=== PATIENT | female | born 1960 | race Caucasian/White ===

== ENCOUNTER 2021-04-22 06:02 | Observation (INO) | payer BC ==
[2021-04-20 12:50] LABS: BASOPHILS % 0.5 % (0.0-1.0); EOSINOPHILS # (AUTO) 0.2 (0.0-0.4); EOSINOPHILS % 2.9 % (0.0-6.0); HEMATOCRIT 44.5 % (34.2-44.1); HEMOGLOBIN 14.1 g/dL (12.0-16.0); LYMPHOCYTES # (AUTO) 2.3 (1.0-3.2); MEAN CORPUSCULAR HEMOGLOBIN 28.3 pg (28-32); MEAN CORPUSCULAR HGB CONC 31.7 g/dL (31-35); MEAN CORPUSCULAR VOLUME 89.4 fL (81-99); MONOCYTES # (AUTO) 0.4 (0.2-0.8); MONOCYTES % 5.6 % (4.4-11.3); NEUTROPHILS # (AUTO) 4.4 (2.1-6.9); NEUTROPHILS % 59.5 % (38.7-80.0); PLATELET COUNT 266 x10e3/uL (140-360); RED BLOOD COUNT 4.98 x10e6/uL (3.6-5.1); RED CELL DISTRIBUTION WIDTH 12.6 % (11.7-14.4)
[2021-04-20 13:10] LABS: INR 0.89; PROTHROMBIN TIME 12.2 seconds (11.9-14.5)
[2021-04-20 13:11] LABS: PARTIAL THROMBOPLASTIN TIME 28.5 seconds (23.8-35.5)
[2021-04-20 13:19] LABS: ANION GAP 16.9 mmol/L (8-16); CALCIUM 9.5 mg/dL (8.4-10.2); CREATININE, SERUM 0.73 mg/dL (0.57-1.11); POTASSIUM 3.9 mmol/L (3.5-5.1)
[~2021-04-22 06:02] MED LIST: GREEN VIBRANCE PO; HYDROXYZIN10 MG/5 ML PO; OMEPRAZOLE40 MG PO; VIT D PO
[2021-04-22] MEDS ORDERED: SODIUM CHLORIDE 0.9% 50ML 100 ML ONE (06:12)
[2021-04-22] MEDS ORDERED: Vancomycin IV 1 GM VIAL ONE (06:48)
[2021-04-22] MEDS ORDERED: LIDOCAINE 1% W/EPINEPHRINE 20 ML VIAL ONE (06:48)
[2021-04-22] MEDS ORDERED: THROMBIN FOR SOLN 5,000 UNIT VIAL ONE (06:48)
[2021-04-22] MEDS ORDERED: HYDROMORPHONE 2MG/ML 2 MG/ML ML IV PRN (09:15)
[2021-04-22] MEDS ORDERED: SOMA350 MG PO (09:15)
[2021-04-22] MEDS ORDERED: ONDANSETRON HCL INJ 2MG/ML 2ML 2 MG/ML VIAL IV PRN (09:15)
[2021-04-22] MEDS ORDERED: MAGNESIUM/ALUMINUM/SIMETHICONE 30 ML UDC PO PRN (09:15)
[2021-04-22] MEDS ORDERED: MORPHINE SULFATE INJ 4 MG/ML INJ 1ML IM PRN (09:15)
[2021-04-22] MEDS ORDERED: ACETAMINOPHEN 325 MG TAB PO PRN (09:15)
[2021-04-22] MEDS ORDERED: PROMETHAZINE HCL (IM) 25 MG/ML VIAL IM PRN (09:15)
[2021-04-22] MEDS ORDERED: CEPACOL SORE THROAT LOZENGES PO PRN (09:15)
[2021-04-22] MEDS ORDERED: CARISOPRODOL 350 MG TAB PO PRN (09:15)
[2021-04-22] MEDS ORDERED: FENTANYL CITRATE/PF 100MCG/2 ML INJ ONE (09:36)
[2021-04-22] MEDS ORDERED: MORPHINE SULFATE INJ 4 MG/ML INJ 1ML ONE (10:14)
[2021-04-22] MEDS ORDERED: CARISOPRODOL 350 MG TAB ONE (12:52)
[2021-04-22 13:00] VITALS: BP 146/78
[2021-04-22] MEDS ORDERED: Cefazolin 1 GM in SODIUM CHLORIDE 0.9% 50ML 50 ML IV SCH (18:35)
[2021-04-22] MEDS ORDERED: LACTATED RINGER'S 1,000 ML IV SCH (18:45)
[2021-04-22] MEDS ORDERED: ZOLPIDEM TARTRATE 5 MG TAB PO PRN (21:00)
[2021-04-23] MEDS ORDERED: HYDROXYZINE HCL 25 MG TAB PO SCH (09:00)
[2021-04-23] MEDS ORDERED: PANTOPRAZOLE SOD 40 MG TABEC PO SCH (09:00)
== END 2021-04-22 13:00 | disposition home or self-care (01) ==
LOC: OR 06:02 → PACU V 09:13
PROVIDERS: ADMIT Neurological Surgery; ATTEND Neurological Surgery
DX: M50.122 Cervical disc disorder at C5-C6 level with radiculopathy (principal); Z20.822 Contact with and (suspected) exposure to COVID-19; Z01.818 Encounter for other preprocedural examination; G47.33 Obstructive sleep apnea (adult) (pediatric); F41.9 Anxiety disorder, unspecified
CPT/HCPCS: 20931; 22551; 22845; 36415; 71046; 77003; 80048; 85025; 85610; 85730; 86850; 86900; 88304; 93005; C1713 ×3; C9359; G0378; J0690; J2270; J3010; J3370; U0002